=== PATIENT | male | born 1995 | race Caucasian/White ===

== ENCOUNTER 2016-07-05 22:04 | Emergency (ER) | payer BC ==
[~2016-07-05] VITALS: Ht 182.9 cm; Wt 99.8 kg
[2016-07-05 22:09] VITALS: TEMP 36.8; Ht 182.9 cm; Wt 99.8 kg
[2016-07-05] MEDS ORDERED: OMEP20TA PO (22:27)
--- NOTE | 2016-07-05 22:54 | EMERGENCY ROOM VISIT NOTE ---
ED Visit Note First contact with patient: 22:23 CHIEF COMPLAINT: Head injury HISTORY OF PRESENT ILLNESS: This 20-year-old male patient presented to the emergency department ambulatory after receiving a head injury several hours ago. The patient reports that he was playing rugby and was knocked over, striking his head on the ground. There was no loss of consciousness. There has been no vomiting. The patient complains of a persistent moderate headache. The patient denies and neck pain, blurred vision, slurred speech, numbness or weakness. The headache has been constant. The patient has taken no medication for the pain. The patient rates the pain as 6/10 and throbbing. The patient denies bowel or bladder dysfunction. The patient denies any other injuries. REVIEW OF SYSTEMS: A review of systems was performed with positives and pertinent negatives listed in the history of present illness. All other systems were reviewed and are negative. ALLERGIES: Sulfa antibiotics MEDICATIONS: Omeprazole PMH: No significant past medical history. SOCIAL HISTORY: The patient is a [employer] student and lives with roommates. PHYSICAL EXAM: Vital Signs: Reviewed Nurse's notes, vital signs stable. GENERAL : This is a 20-year-old male, in no acute distress, well-developed, well- nourished. NEURO: The patient is alert, oriented to person place and time, and coherent. Normal mini mental status exam. Negative Romberg and pronator drift. Cerebellar function intact. HEAD: Normocephalic. EYES: Pupils are equal round and reactive to light and accommodation. EOMs are full and optic discs and fundi are normal. There is no swelling or discoloration of the tissue surrounding the eyes. EARS: External auditory canals clear without blood. NOSE: Patent without tenderness. No septal hematoma. FACE: No facial bone tenderness. NECK: Supple. There is no cervical spine tenderness. The patient does not have tenderness with movement of the neck. ED COURSE: I examined the patient. The patient has a persistent moderate headache several hours after a head injury. His symptoms are consistent with a mild concussion. There is nothing to suggest a more serious injury and I do not feel that imaging is necessary. I did discuss the risks/benefits of performing a CT scan with the patient in the patient's mother by telephone. They agreed that no further testing was needed at this time. The patient was instructed to follow-up with [facility]. Conservative measures were discussed. The patient verbalized understanding of my assessment and treatment plan. The patient was discharged home in good condition ambulatory. DIAGNOSIS: Head injury DISCHARGE INSTRUCTIONS: Problem List Medical Problems: (1) Pleurisy Status: Resolved Current/Historical Medications Scheduled Omeprazole (Omeprazole), 40 MG PO DAILY Allergies Coded Allergies: Sulfa Antibiotics (Verified Allergy, Unknown, unknown, 06/03/14) Vital Signs Date Time Temp Pulse Resp B/P Pulse Ox O2 Delivery O2 Flow Rate FiO2 07/05/16 23:03 67 16 129/76 100 07/05/16 22:09 36.8 65 18 133/74 99 Room Air Departure Information Impression Primary Impression: Closed head injury Dispostion Home / Self-Care Condition GOOD Referrals No Doctor, Assigned (PCP) Patient Instructions ED Head Injury Closed, [facility] Additional Instructions You have been treated in the Emergency Department for a Closed Head Injury. For pain control, you can use the following [id number] medicines (if >12 yo): - Regular strength (325mg/tab) Tylenol (acetaminophen) 2 tabs every 4-6 hours as needed. Do not exceed 12 tablets in a 24 hour period. Avoid taking more than 4 grams (4000 mg) of Tylenol per day. This includes any other sources of acetaminophen you may take on a regular basis. - Regular strength (200 mg/tab) Advil (ibuprofen) 1-2 tabs every 4-6 hours as needed. Do not exceed a dose of 3200 mg per day. You should relax in a quiet, dark place for the rest of the day. Avoid any possible triggers including: cigarette smoke, caffeine, nicotine, chocolate, wine, beer, loud noises or music, or bright lights. You should schedule a follow-up appointment in 2-3 days with your Primary Care Provider or established Neurologist for further evaluation and treatment of your Headache. You should NOT return to athletic play until reevaluated by your [employer]. You should fully comply with their standard protocol regarding head injuries. Your V[employer] Helper OR Primary Care Provider will have the final say in your return to athletic play. This timeframe should be AT LEAST 1 week AFTER the date of last symptoms experienced! This is ESSENTIAL to allow for adequate brain healing time and for reduced risk of re-injury. Return to the Emergency Department if your current symptoms worsen despite treatment course outlined above, or if you develop any of the following symptoms : intractable pain despite aforementioned treatment course, visual disturbances , loss of vision, unilateral weakness or facial drooping, slurring of speech, loss of coordination, or loss of consciousness. Problem Qualifiers Primary Impression: Closed head injury Encounter type: initial encounter Qualified Codes: S09.90XA - Unspecified injury of head, initial encounter
[2016-07-05 23:03] VITALS: BP 129/76; PULSE 67; O2SAT 100
== END 2016-07-05 23:05 | disposition home or self-care (01) ==
LOC: C.EDB 22:06 → C.EDC 23:05
DX: S09.90XA Unspecified injury of head, initial encounter (principal); W50.0XXA Accidental hit or strike by another person, initial encounter; Y93.63 Activity, rugby; Z88.2 Allergy status to sulfonamides